=== PATIENT | female | born 2005 | race Two or more races ===

== ENCOUNTER 2023-12-07 00:21 | Emergency (ER) | payer OTHER ==
[~2023-12-07] VITALS: Ht 180.3 cm; Wt 88.9 kg
[2023-12-07] MEDS ORDERED: ACETAMINOPHEN 500 MG GEL..CAP PO STA (00:33)
[2023-12-07 02:50] LABS: HEMATOCRIT 38.1 % (36.0-45.00); HEMOGLOBIN 13.2 g/dL (12.0-15.00); MEAN CELL VOLUME 85.6 fL (80.00-100.00); MEAN CORPUSCULAR HEMOGLOBIN 29.6 pg (27.00-32.0); MEAN CORPUSCULAR HGB CONC 34.6 g/dl (32.0-36.0); PLATELET COUNT 229 K/uL (150-450); RED BLOOD COUNT 4.46 M/uL (4.00-6.00); RED CELL DISTRIBUTION WIDTH 15.1 % (11.5-14.5)
[2023-12-07] MEDS ORDERED: DOLOGESIC 500-1 EACH PO (04:06)
== END 2023-12-07 04:39 | disposition home or self-care (01) ==
LOC: ER 00:22
PROVIDERS: General Practice
DX: U07.1 COVID-19 (principal)